=== PATIENT | male | born 1990 | race Caucasian/White ===

== ENCOUNTER 2016-08-24 17:11 | Emergency (ER) | payer SELFPAY ==
[~2016-08-24] VITALS: Ht 170.2 cm; Wt 55.0 kg
[2016-08-24 17:41] VITALS: BP 123/85
== END 2016-08-24 20:50 | disposition left against medical advice (07) ==
LOC: ER 17:11
DX: R11.2 Nausea with vomiting, unspecified (principal); R10.9 Unspecified abdominal pain; R19.7 Diarrhea, unspecified; F10.10 Alcohol abuse, uncomplicated; Y90.9 Presence of alcohol in blood, level not specified; F12.90 Cannabis use, unspecified, uncomplicated; F17.210 Nicotine dependence, cigarettes, uncomplicated; Z53.21 Procedure and treatment not carried out due to patient leaving prior to being seen by health care provider
CPT/HCPCS: A4315